=== PATIENT | female | born 1965 | race Caucasian/White ===

== ENCOUNTER 2017-10-23 22:08 | Emergency (ER) | payer OTHER, BC ==
[2017-10-23] MEDS ORDERED: OXYMETAZOLINE 0.05% NASL SPRAY 1 SPRAY BOTTLE NASAL STA (22:55)
[2017-10-23] MEDS ORDERED: ALBUTEROL NEBULIZED 2.5 MG/3 ML INHALATION STA (22:55)
[2017-10-23 23:51] VITALS: BP 119/92; PULSE 77; RESP 18; TEMP 97
--- NOTE | 2017-10-24 00:02 | ED ---
URI HPI - General Chief Complaint: Upper Respiratory Infection Stated Complaint: SOB/Cough Time Seen by Provider: 10/23/17 22:26 Source: patient Mode of arrival: ambulatory Limitations: no limitations - History of Present Illness Initial Comments: This patient is a 52-year-old woman who presents to be evaluated for cough, nasal congestion, which has been going on for 2-3 weeks. She states she also has some pain in the right mid back that she states developed after she had a coughing spell. The patient states she had seen her primary doctor and she had been given a course of antibiotics which didn't help too much. She had follow- up and was given a course of steroids which did seem to help her symptoms, but after this finish they returned. She states currently she is taking some Mucinex which does not seem to be doing much at all. Patient denies fever or chills. There is no chest pain. She is not feeling dyspneic. MD Complaint: cough, nasal congestion Onset/Timin -: week(s) - Related Data Home Medications Medication Instructions Recorded Confirmed ALPRAZolam [Xanax] 2 mg PO TID PRN 10/23/17 10/23/17 Amitriptyline HCl [Elavil] 25 mg PO DAILY 10/23/17 10/23/17 Coreg Unknown Dose 1 tab PO DAILY 10/23/17 10/23/17 Hydrocodone/Acetaminophen [[place] 1 tab PO TID PRN 10/23/17 10/23/17 7.5-325] Lisinopril [Zestril] 20 mg PO DAILY 10/23/17 10/23/17 Montelukast Sodium [Singulair] 10 mg PO HS 10/23/17 10/23/17 Multivitamins, Thera [Multivitamin 1 tab PO HS 10/23/17 10/23/17 (formulary)] Omeprazole 40 mg PO HS 10/23/17 10/23/17 Previous Rx's Medication Instructions Recorded Albuterol Nebulized (Conc) 2.5 mg INHALATION QID #50 neb 10/24/17 [Ventolin Nebulized (Conc)] Fluticasone Propionate 1 spray EA NOSTRIL BID #1 bottle 10/24/17 predniSONE 60 mg PO DAILY #30 tab 10/24/17 Allergies Allergy/AdvReac Type Severity Reaction Status Date / Time codeine Allergy Rash/Hives Verified 10/23/17 22:28 naproxen Allergy Rash/Hives Verified 10/23/17 22:28 Review of Systems ROS Statement: Those systems with pertinent positive or pertinent negative responses have been documented in the HPI. ROS Other: All systems not noted in ROS Statement are negative. Constitutional: Denies: fever, chills ENT: Reports: congestion. Denies: ear pain, throat pain Respiratory: Reports: cough. Denies: dyspnea, wheezes Cardiovascular: Denies: chest pain, palpitations, syncope Gastrointestinal: Denies: abdominal pain, vomiting, diarrhea Musculoskeletal: Reports: as per HPI, back pain Skin: Denies: rash Neurological: Denies: headache, weakness, numbness Past Medical History Past Medical History: Hypertension History of Any Multi-Drug Resistant Organisms: None Reported Past Surgical History: Cholecystectomy, Hysterectomy Additional Past Surgical History / Comment(s): right ankle. Past Psychological History: No Psychological Hx Reported Smoking Status: Current every day smoker Past Alcohol Use History: Occasional Past Drug Use History: None Reported General Exam Limitations: no limitations General appearance: alert, in no apparent distress, obese Head exam: Present: atraumatic, normocephalic Eye exam: Present: normal appearance. Absent: scleral icterus, conjunctival injection ENT exam: Present: normal oropharynx, TM's normal bilaterally, other (Nasal congestion) Neck exam: Present: normal inspection, full ROM. Absent: meningismus, lymphadenopathy Respiratory exam: Present: wheezes. Absent: respiratory distress, rales, rhonchi, stridor, accessory muscle use, decreased breath sounds, prolonged expiratory Cardiovascular Exam: Present: regular rate, normal rhythm, normal heart sounds. Absent: systolic murmur, diastolic murmur, rubs, gallop GI/Abdominal exam: Present: soft. Absent: distended, tenderness, guarding Extremities exam: Present: normal inspection, normal capillary refill. Absent: pedal edema, calf tenderness Back exam: Present: normal inspection. Absent: CVA tenderness (R), CVA tenderness (L) Neurological exam: Present: alert Skin exam: Present: warm, dry, intact, normal color. Absent: rash Course Vital Signs 10/23/17 10/23/17 10/23/17 22:18 23:31 23:43 Temperature 99.2 F Pulse Rate 81 80 88 Respiratory 20 Rate Blood Pressure 178/103 O2 Sat by Pulse 98 Oximetry 10/23/17 23:50 Temperature 97 F L Pulse Rate 77 Respiratory 18 Rate Blood Pressure 119/92 O2 Sat by Pulse Oximetry Disposition Clinical Impression: Upper respiratory infection, Bronchitis Disposition: HOME SELF-CARE Condition: Good Instructions: Upper Respiratory Infection (ED) Prescriptions: Albuterol Nebulized (Conc) [Ventolin Nebulized (Conc)] 2.5 mg INHALATION QID # 50 neb Fluticasone Propionate 1 spray EA NOSTRIL BID #1 bottle predniSONE 60 mg PO DAILY #30 tab Referrals: Gabriel Sosa MD [Primary Care Provider] - 1-2 days Dawson Knight MD [STAFF PHYSICIAN] - 1-2 days
== END 2017-10-24 00:14 | disposition home or self-care (01) ==
LOC: EC 22:08
DX: J40 Bronchitis, not specified as acute or chronic (principal); J06.9 Acute upper respiratory infection, unspecified; I10 Essential (primary) hypertension; E66.9 Obesity, unspecified; F17.200 Nicotine dependence, unspecified, uncomplicated; Z79.899 Other long term (current) drug therapy; Z88.5 Allergy status to narcotic agent; Z88.6 Allergy status to analgesic agent; Z68.41 Body mass index [BMI] 40.0-44.9, adult
CPT/HCPCS: 94640; 99283

== ENCOUNTER 2020-01-06 04:30 | Emergency (ER) | payer OTHER, BC ==
[2020-01-06] MEDS ORDERED: FAMOTIDINE 20 MG/2 ML VIAL IV STA (04:58)
[2020-01-06] MEDS ORDERED: methylPREDNISolone SOD SUCCI 125 MG/2 ML VIAL IV STA (04:58)
[2020-01-06] MEDS ORDERED: diphenhydrAMINE 50 MG/ML 1 ML VIAL IVP STA (04:59)
[2020-01-06 05:24] LABS: HCT 48.8 % (34.0-46.0); HGB 15.5 gm/dL (11.4-16.0); MCH 29.1 pg (25.0-35.0); MCHC 31.9 g/dL (31.0-37.0); MCV 91.1 fL (80.0-100.0); Mean Platelet Volume 8.6; Platelet Count 448 k/uL (150-450); RBC 5.35 m/uL (3.80-5.40); RDW 13.9 % (11.5-15.5); WBC 10.2 k/uL (3.8-10.6)
--- NOTE | 2020-01-06 05:24 | XR ---
EXAMINATION TYPE: XR chest 2V DATE OF EXAM: 01/06/2020 COMPARISON: 03/04/2011 HISTORY: Chest pain TECHNIQUE: Single view FINDINGS: There is no heart failure nor confluent pneumonic infiltrate. There are chest leads. Costop hrenic angles are clear. Thoracic aorta is atheromatous. IMPRESSION: No active cardiopulmonary disease. Atheromatous aorta. No change.
[2020-01-06 05:36] LABS: ALT 23 U/L (4-34); AST 26 U/L (14-36); African American GFR (CKD) >90 (>60 ml/min/1.73 sqM); Albumin 4.3 g/dL (3.5-5.0); Alkaline Phosphatase 69 U/L (38-126); Anion Gap 12 mmol/L; Blood Urea Nitrogen 20 mg/dL (7-17); Calcium 9.9 mg/dL (8.4-10.2); Carbon Dioxide 26 mmol/L (22-30); Chloride 99 mmol/L (98-107); Glucose 186 mg/dL (74-99); Non-African American GFR(CKD) 87 (>60 ml/min/1.73 sqM); Potassium 4.1 mmol/L (3.5-5.1); Sodium 137 mmol/L (137-145); Total Bilirubin 0.3 mg/dL (0.2-1.3)
--- NOTE | 2020-01-06 06:26 | ED ---
General Adult HPI - General Chief complaint: Allergic Reaction Stated complaint: Allergic Reaction Time Seen by Provider: 01/06/20 04:40 Source: patient Mode of arrival: ambulatory Limitations: no limitations - History of Present Illness Initial comments: Kelly is a pleasant 54-year-old female presents the ER today for evaluation of hives. Patient reports she was in her usual state of health throughout the day yesterday when she went to bed, patient states she woke suddenly because her hands and feet were and she. She got up and gotten an ice cold bath because she didn't know what else to do for these hives. Patient reports that despite taking a cold bath and 50 mg of oral Benadryl she continued to feel itchy all over her entire body and noted hives on her hands, feet, left side of her face and chest. Patient reports she took the Benadryl on an empty stomach but shortly after taking a vomited back up. She then asked her brings her ER for evaluation. Patient reports she has had ALLERGIC reactions in the past a certain vegetables and she does suffer from seasonal ALLERGIES. She's never had anaphylaxis. She did not use an EpiPen. She's not having any tightness in her chest shortness of breath nausea and aside from the vomiting she had after taking the Benadryl and empty stomach is not nauseated and not have any further vomiting. - Related Data Home Medications Medication Instructions Recorded Confirmed ALPRAZolam [Xanax] 2 mg PO TID PRN 10/23/17 10/23/17 Amitriptyline HCl [Elavil] 25 mg PO DAILY 10/23/17 10/23/17 Coreg Unknown Dose 1 tab PO DAILY 10/23/17 10/23/17 Hydrocodone/Acetaminophen [[place] 1 tab PO TID PRN 10/23/17 10/23/17 7.5-325] Lisinopril [Zestril] 20 mg PO DAILY 10/23/17 10/23/17 Montelukast Sodium [Singulair] 10 mg PO HS 10/23/17 10/23/17 Multivitamins, Thera [Multivitamin 1 tab PO HS 10/23/17 10/23/17 (formulary)] Omeprazole 40 mg PO HS 10/23/17 10/23/17 Previous Rx's Medication Instructions Recorded Albuterol Nebulized (Conc) 2.5 mg INHALATION QID #50 neb 10/24/17 [Ventolin Nebulized (Conc)] Fluticasone Propionate 1 spray EA NOSTRIL BID #1 bottle 10/24/17 predniSONE 60 mg PO DAILY #30 tab 10/24/17 Allergies Allergy/AdvReac Type Severity Reaction Status Date / Time codeine Allergy Rash/Hives Verified 01/06/20 04:35 naproxen Allergy Rash/Hives Verified 01/06/20 04:35 Review of Systems ROS Statement: Those systems with pertinent positive or pertinent negative responses have been documented in the HPI. ROS Other: All systems not noted in ROS Statement are negative. Past Medical History Past Medical History: Hypertension History of Any Multi-Drug Resistant Organisms: None Reported Past Surgical History: Cholecystectomy, Hysterectomy Additional Past Surgical History / Comment(s): right ankle. Past Psychological History: No Psychological Hx Reported Smoking Status: Current every day smoker Past Alcohol Use History: Occasional Past Drug Use History: None Reported General Exam - General Exam Comments Initial Comments: Physical Exam GENERAL: Patient is well-developed and well-nourished. Patient is nontoxic and well- hydrated and is in no distress. HENT: Normocephalic, Atraumatic. EYES: PERRL, EOMI PULMONARY: Unlabored respirations. No audible rales rhonchi or wheezing was noted. CARDIOVASCULAR: There is a regular rate and rhythm without any murmurs gallops or rubs. ABDOMEN: Soft and nontender with normal bowel sounds. SKIN: Diffuse urticaria including hives on the dorsum of the hands : Deferred NEUROLOGIC: Patient is alert and oriented x3. Moving all extremities spontaneously MUSCULOSKELETAL: Normal extremities with adequate strength and full range of motion. No lower extremity swelling or edema. No calf tenderness. PSYCHIATRIC: Normal psychiatric evaluation. Limitations: no limitations Course Vital Signs 01/06/20 01/06/20 01/06/20 04:33 04:50 05:05 Temperature 97.4 F L Pulse Rate 79 86 Respiratory 20 20 Rate Blood Pressure 112/68 115/90 O2 Sat by Pulse 90 L 90 L 97 Oximetry 01/06/20 06:49 Temperature 96.7 F L Pulse Rate 88 Respiratory 18 Rate Blood Pressure 116/78 O2 Sat by Pulse 100 Oximetry Medical Decision Making - Medical Decision Making The patient was seen and evaluated history was obtained from patient bedside Patient with diffuse urticaria with no specific underlying cause, she is hemodynamically stable to have any wheezing nausea or vomiting or any other signs of systemic ALLERGIC reaction. Uncertain if this diffuse urticaria secondary to ALLERGIC reaction or primary urticaria however we will treat with Benadryl, Pepcid and Solu-Medrol. Basic labs chest x-ray were ordered and resulted with no significant abnormalities results were discussed with the patient was sleeping comfortably hives have nearly resolved at this time she is comfortable with plan for discharge home and outpatient follow-up. - Lab Data Result diagrams: 01/06/20 04:55 01/06/20 04:55 Lab Results 01/06/20 01/06/20 Range/Units 04:55 04:55 WBC 10.2 (3.8-10.6) k/uL RBC 5.35 (3.80-5.40) m/uL Hgb 15.5 (11.4-16.0) gm/dL Hct 48.8 H (34.0-46.0) % MCV 91.1 (80.0-100.0) fL MCH 29.1 (25.0-35.0) pg MCHC 31.9 (31.0-37.0) g/dL RDW 13.9 (11.5-15.5) % Plt Count 448 (150-450) k/uL Sodium 137 (137-145) mmol/L Potassium 4.1 (3.5-5.1) mmol/L Chloride 99 (98-107) mmol/L Carbon Dioxide 26 (22-30) mmol/L Anion Gap 12 mmol/L BUN 20 H (7-17) mg/dL Creatinine 0.77 (0.52-1.04) mg/dL Est GFR (CKD-EPI)AfAm >90 (>60 ml/min/1.73 sqM) Est GFR (CKD-EPI)NonAf 87 (>60 ml/min/1.73 sqM) Glucose 186 H (74-99) mg/dL Calcium 9.9 (8.4-10.2) mg/dL Total Bilirubin 0.3 (0.2-1.3) mg/dL AST 26 (14-36) U/L ALT 23 (4-34) U/L Alkaline Phosphatase 69 (38-126) U/L Total Protein 7.0 (6.3-8.2) g/dL Albumin 4.3 (3.5-5.0) g/dL Disposition Clinical Impression: Urticaria Disposition: HOME SELF-CARE Condition: Stable Instructions (If sedation given, give patient instructions): Urticaria (ED) Is patient prescribed a controlled substance at d/c from ED?: No Referrals: Gabriel Sosa MD [Primary Care Provider] - 1-2 days
[2020-01-06 06:51] VITALS: BP 116/78; PULSE 88; RESP 18; TEMP 96.7
== END 2020-01-06 06:50 | disposition home or self-care (01) ==
LOC: EC 04:30
DX: L50.9 Urticaria, unspecified (principal); I10 Essential (primary) hypertension; F17.200 Nicotine dependence, unspecified, uncomplicated; Z88.5 Allergy status to narcotic agent; Z88.6 Allergy status to analgesic agent; Z91.048 Other nonmedicinal substance allergy status; Z79.899 Other long term (current) drug therapy
CPT/HCPCS: 36415; 80053; 85027; 71046; 99283; 96374; 96375 ×2; J1200; J2930